=== PATIENT | male | born 1955 | race Caucasian/White ===

== ENCOUNTER 2019-05-16 12:19 | Inpatient (IN) ==
[2019-05-16] MEDS ORDERED: Acetaminophen 325 MG TABLET PO PRN (12:40)
[2019-05-16] MEDS ORDERED: Nitroglycerin 0.4 MG TAB.SUBL SL PRN (12:40)
[2019-05-16] MEDS: Gabapentin 300 MG CAPSULE PO SCH ×2 (15:17→21:46)
[2019-05-16] MEDS: Morphine Sulfate ER (12 HR) 30 MG TABLET.ER PO SCH ×2 (15:17→21:47)
[2019-05-16] MEDS: clonazePAM 0.5 MG TABLET PO SCH ×2 (15:18→21:46)
[2019-05-16] MEDS: Furosemide 40 MG TABLET PO SCH (15:18)
[2019-05-16] MEDS: Sucralfate 1 GM TABLET PO SCH ×2 (15:18→21:46)
[2019-05-16] MEDS: Mirtazapine 15 MG TABLET PO SCH (21:46)
[2019-05-16] MEDS: Famotidine 20 MG TABLET PO SCH (21:47)
[2019-05-17 06:13] LABS: Basophils % 0.5 %; Eosinophils # 0.2 K/mcL (0.0-0.6); Eosinophils % 1.7 %; Hematocrit 47.1 % (37.5-50.1); Hemoglobin 14.9 g/dL (12.9-16.9); Immature Granulocytes % 0.3 % (0-4); Lymphocytes # 3.7 K/mcL (0.6-4.6); Lymphocytes % 42.6 %; Mean Corpuscular HGB Conc 31.6 g/dL (31.6-35.5); Mean Corpuscular Hemoglobin 28.8 pg (28.0-33.3); Mean Corpuscular Volume 90.9 fL (83.0-100.0); Mean Platelet Volume 10.4 fL (9.4-12.4); Monocytes # 0.6 K/mcL (0.0-1.3); Monocytes % 7.1 %; Neutrophils # 4.2 K/mcL (1.6-8.9); Platelet Count 183 K/mcL (140-400); Red Blood Count 5.18 M/mcL (4.19-5.50); Red Cell Distribution Width 14.1 % (11.5-14.5); Segmented Neutrophils % 47.8 %; White Blood Count 8.7 K/mcL (4.3-11.1)
[2019-05-17 06:58] LABS: BUN/Creatinine Ratio 12 (6-26); Blood Urea Nitrogen 13 mg/dL (8-23); Calcium 9.3 mg/dL (8.6-10.3); Carbon Dioxide 34 mEq/L (23-29); Chloride 99 mEq/L (98-107); Glucose 98 mg/dL (70-105); Osmolality,Calculated 292 (280-300); Sodium 141 mEq/L (136-145); eGFR For African Americans > 60 (> 60); eGFR For Non-African Americans > 60 (> 60)
[2019-05-17] MEDS: Morphine Sulfate ER (12 HR) 30 MG TABLET.ER PO SCH ×2 (08:55→16:34)
[2019-05-17] MEDS: clonazePAM 0.5 MG TABLET PO SCH ×3 (08:56→21:56)
[2019-05-17] MEDS: Sucralfate 1 GM TABLET PO SCH ×4 (08:56→21:55)
[2019-05-17] MEDS: Famotidine 20 MG TABLET PO SCH ×2 (08:56→21:56)
[2019-05-17] MEDS: Aspirin Enteric Coated 81 MG Tablet PO SCH (08:56)
[2019-05-17] MEDS: Gabapentin 300 MG CAPSULE PO SCH ×3 (08:57→21:57)
[2019-05-17] MEDS ORDERED: Aspirin 325 MG TABLET PO SCH (09:00)
[2019-05-17 10:27] LABS: Estimated Average Glucose 105 mg/dl
[2019-05-17] MEDS ORDERED: GI Cocktail 40 ML EACH PO ONE (17:35)
[2019-05-17] MEDS: Mirtazapine 15 MG TABLET PO SCH (21:56)
[2019-05-18] MEDS: Morphine Sulfate ER (12 HR) 30 MG TABLET.ER PO SCH ×3 (00:18→17:44)
[2019-05-18] MEDS: Famotidine 20 MG TABLET PO SCH ×2 (08:53→22:22)
[2019-05-18] MEDS: clonazePAM 0.5 MG TABLET PO SCH ×3 (08:53→22:22)
[2019-05-18] MEDS: Gabapentin 300 MG CAPSULE PO SCH ×3 (08:53→22:22)
[2019-05-18] MEDS: Sucralfate 1 GM TABLET PO SCH ×4 (08:53→22:22)
[2019-05-18] MEDS: Aspirin Enteric Coated 81 MG Tablet PO SCH (08:54)
[2019-05-18] MEDS: Furosemide 40 MG TABLET PO SCH (11:50)
[2019-05-18] MEDS: Mirtazapine 15 MG TABLET PO SCH (22:22)
[2019-05-19] MEDS: Morphine Sulfate ER (12 HR) 30 MG TABLET.ER PO SCH ×3 (04:29→16:51)
[2019-05-19] MEDS: Aspirin Enteric Coated 81 MG Tablet PO SCH (08:12)
[2019-05-19] MEDS: Gabapentin 300 MG CAPSULE PO SCH ×3 (08:12→20:22)
[2019-05-19] MEDS: Sucralfate 1 GM TABLET PO SCH ×4 (08:12→20:22)
[2019-05-19] MEDS: Famotidine 20 MG TABLET PO SCH ×2 (08:13→20:22)
[2019-05-19] MEDS: clonazePAM 0.5 MG TABLET PO SCH ×3 (08:13→20:22)
[2019-05-19] MEDS: Mirtazapine 15 MG TABLET PO SCH (20:22)
[2019-05-20] MEDS: Morphine Sulfate ER (12 HR) 30 MG TABLET.ER PO SCH ×3 (00:47→15:25)
[2019-05-20] MEDS: Sucralfate 1 GM TABLET PO SCH ×4 (09:27→20:10)
[2019-05-20] MEDS: Famotidine 20 MG TABLET PO SCH ×2 (09:27→20:09)
[2019-05-20] MEDS: clonazePAM 0.5 MG TABLET PO SCH ×3 (09:27→20:10)
[2019-05-20] MEDS: Gabapentin 300 MG CAPSULE PO SCH ×3 (09:28→20:09)
[2019-05-20] MEDS: Aspirin Enteric Coated 81 MG Tablet PO SCH (09:28)
[2019-05-20] MEDS ORDERED: Furosemide 40 MG TABLET PO SCH (09:45)
[2019-05-20] MEDS: Furosemide 40 MG TABLET PO SCH (10:14)
[2019-05-20] MEDS: Mirtazapine 15 MG TABLET PO SCH (20:09)
[2019-05-21] MEDS: Morphine Sulfate ER (12 HR) 30 MG TABLET.ER PO SCH ×3 (00:54→16:04)
[2019-05-21] MEDS ORDERED: Furosemide 40 MG TABLET PO SCH (09:00)
[2019-05-21] MEDS: clonazePAM 0.5 MG TABLET PO SCH ×3 (09:01→21:14)
[2019-05-21] MEDS: Furosemide 40 MG TABLET PO SCH (09:02)
[2019-05-21] MEDS: Famotidine 20 MG TABLET PO SCH ×2 (09:02→21:14)
[2019-05-21] MEDS: Aspirin Enteric Coated 81 MG Tablet PO SCH (09:02)
[2019-05-21] MEDS: Gabapentin 300 MG CAPSULE PO SCH ×3 (09:02→21:14)
[2019-05-21] MEDS: Sucralfate 1 GM TABLET PO SCH ×4 (09:02→21:14)
[2019-05-21] MEDS ORDERED: Ondansetron 4 MG/2 ML VIAL IVP PRN (09:58)
[2019-05-21] MEDS: Ondansetron ODT 4 MG TAB.RAPDIS SL PRN (10:48)
[2019-05-21] MEDS ORDERED: Ondansetron 4 MG/2 ML VIAL IVP SCH (12:00)
[2019-05-21] MEDS: Mirtazapine 15 MG TABLET PO SCH (21:14)
[2019-05-22] MEDS: Morphine Sulfate ER (12 HR) 30 MG TABLET.ER PO SCH ×3 (00:20→15:38)
[2019-05-22] MEDS: Aspirin Enteric Coated 81 MG Tablet PO SCH (08:20)
[2019-05-22] MEDS: clonazePAM 0.5 MG TABLET PO SCH ×3 (08:20→21:43)
[2019-05-22] MEDS: Furosemide 40 MG TABLET PO SCH (08:21)
[2019-05-22] MEDS: Gabapentin 300 MG CAPSULE PO SCH ×3 (08:21→21:44)
[2019-05-22] MEDS: Sucralfate 1 GM TABLET PO SCH ×4 (08:21→21:44)
[2019-05-22] MEDS: Famotidine 20 MG TABLET PO SCH ×2 (08:22→21:44)
[2019-05-22] MEDS: Ondansetron ODT 4 MG TAB.RAPDIS SL PRN (16:25)
[2019-05-22] MEDS: Mirtazapine 15 MG TABLET PO SCH (21:44)
[2019-05-23] MEDS: Morphine Sulfate ER (12 HR) 30 MG TABLET.ER PO SCH ×2 (00:38→09:02)
[2019-05-23] MEDS: Sucralfate 1 GM TABLET PO SCH ×2 (06:25→11:10)
[2019-05-23 07:07] VITALS: BP 117/70
[2019-05-23] MEDS: clonazePAM 0.5 MG TABLET PO SCH (09:01)
[2019-05-23] MEDS: Furosemide 40 MG TABLET PO SCH (09:02)
[2019-05-23] MEDS: Gabapentin 300 MG CAPSULE PO SCH (09:02)
[2019-05-23] MEDS: Famotidine 20 MG TABLET PO SCH (09:03)
[2019-05-23] MEDS: Aspirin Enteric Coated 81 MG Tablet PO SCH (09:03)
[2019-05-31] MEDS ORDERED: TESTOSTERONE CYPIONATE 400 MG IM SCH (12:00)
== END 2019-05-23 14:55 | disposition home health service (06) | DRG 392 ==
LOC: INPPIK 12:34
PROVIDERS: ADMIT Family Medicine; ATTEND Family Medicine